=== PATIENT | female | born 1955 | race Caucasian/White ===

== ENCOUNTER → 2018-04-27 | Outpatient (CLI) | payer OTHER ==
[2018-04-27 15:37] LABS: ALBUMIN 4.4 g/dL (3.5-5.0); CALCIUM 9.5 mg/dL (8.4-10.2); POTASSIUM 3.9 mmol/L (3.6-5.0); TOTAL BILIRUBIN 0.6 mg/dL (0.2-1.3); TOTAL PROTEIN 7.4 g/dL (6.3-8.2)
[2018-04-27 15:45] LABS: BASO # 0.1 (0.02-0.10); EOS # 0.3 (0.04-0.40); EOS % 2.7 % (1.0-5.0); HEMATOCRIT 38.3 % (37.0-47.0); HEMOGLOBIN 13.4 g/dL (12.5-16.0); MEAN CELL VOLUME 86 fl (78-100); MEAN CORPUSCULAR HEMOGLOBIN 30 pg (27-31); MEAN CORPUSCULAR HGB CONC 35 g/dL (33-37); MEAN PLATELET VOLUME 10.9 fl (7.4-10.4); MONO # 0.9 (0.20-0.80); NEU # 5.2 (1.40-6.50); PLATELET COUNT 381 K/mm3 (130-400); RED BLOOD COUNT 4.45 M/mm3 (4.10-5.30); RED CELL DISTRIBUTION WIDTH 13.2 % (11.5-14.5); WHITE BLOOD COUNT 12.1 K/mm3 (4.8-10.8)
[2018-04-27 15:49] LABS: URINE APPEARANCE CLEAR; URINE COLOR YELLOW
[2018-04-27 15:50] LABS: URINE BILIRUBIN NEGATIVE (NEGATIVE); URINE BLOOD NEGATIVE (NEGATIVE); URINE GLUCOSE NEGATIVE (NEGATIVE); URINE KETONE NEGATIVE (NEGATIVE); URINE LEUKOCYTE ESTERASE NEGATIVE (NEGATIVE); URINE NITRATE NEGATIVE (NEGATIVE); URINE PROTEIN(semi-quant) NEGATIVE (NEGATIVE); URINE UROBILINOGEN NORMAL (NORMAL); URINE WBC 0-1 /hpf (0-3)
[2018-04-27 16:29] LABS: LYMPH# 5.5 (1.50-4.00)
== END ==
LOC: LAB 14:16
PROVIDERS: Family Medicine
DX: Z01.419 Encounter for gynecological examination (general) (routine) without abnormal findings (principal); R73.9 Hyperglycemia, unspecified; R35.0 Frequency of micturition; E55.9 Vitamin D deficiency, unspecified

== ENCOUNTER → 2018-04-29 | Outpatient (CLI) | payer OTHER ==
[2018-04-30 01:15] LABS: T3 TOTAL 215 ng/dL (87-178)
== END ==
LOC: LAB 10:26
PROVIDERS: Family Medicine
DX: E05.90 Thyrotoxicosis, unspecified without thyrotoxic crisis or storm (principal)

== ENCOUNTER → 2018-05-17 | Outpatient (CLI) | payer OTHER | LOC: MAMMO 12:51 | DX: Z12.31 Encounter for screening mammogram for malignant neoplasm of breast (principal) ==

== ENCOUNTER → 2020-10-01 | Outpatient (CLI) | payer MEDICARE, OTHER | LOC: RAD 09:47 → LAB 09:47 | DX: R06.00 Dyspnea, unspecified (principal); Z20.822 Contact with and (suspected) exposure to COVID-19 ==

== ENCOUNTER 2022-02-14 19:56 | Emergency (ER) | payer MEDICARE, OTHER ==
[~2022-02-14] VITALS: Wt 65.9 kg
[2022-02-14] MEDS ORDERED: SYNTHROID RP0.1 MG (20:08)
[2022-02-14] MEDS ORDERED: FLOVENT HFA12 G1 (20:08)
[2022-02-14 21:02] LABS: BASO # 0.04 K/mm3 (0.02-0.10); EOS # 0.02 K/mm3 (0.04-0.40); EOS % 0.1 % (1.0-5.0); HEMATOCRIT 39.3 % (37.0-47.0); LYMPH# 3.21 K/mm3 (1.50-4.00); MEAN CELL VOLUME 87 fl (78-100); MEAN CORPUSCULAR HEMOGLOBIN 31 pg (27-31); MEAN CORPUSCULAR HGB CONC 36 g/dL (33-37); MEAN PLATELET VOLUME 10.5 fl (7.4-10.4); MONO # 0.48 K/mm3 (0.20-0.80); NEU # 12.83 K/mm3 (1.40-6.50); PLATELET COUNT 421 K/mm3 (130-400); RED CELL DISTRIBUTION WIDTH 13.1 % (11.5-14.5); WHITE BLOOD COUNT 16.6 K/mm3 (4.8-10.8)
[2022-02-14 21:10] LABS: POTASSIUM 4.1 mmol/L (3.5-5.1)
[2022-02-14 21:11] LABS: CALCIUM 9.1 mg/dL (8.3-10.5)
[2022-02-14 22:42] VITALS: BP 159/89
== END 2022-02-14 22:43 | disposition home or self-care (01) ==
LOC: ED 19:56
PROVIDERS: Family Medicine
DX: R51.9 Headache, unspecified (principal); R11.0 Nausea; Z20.822 Contact with and (suspected) exposure to COVID-19; Z28.310 Unvaccinated for COVID-19
CPT/HCPCS: J1885; J2405; J7030

== ENCOUNTER 2024-03-11 12:58 | Emergency (ER) | payer MEDICARE, OTHER ==
[~2024-03-11] VITALS: Ht 15.2 cm; Wt 67.1 kg
[~2024-03-11 12:58] MED LIST: FLOVENT HFA12 G1; SYNTHROID RP0.1 MG
[2024-03-11 16:24] VITALS: BP 173/74
== END 2024-03-11 16:25 | disposition home or self-care (01) ==
LOC: ED 12:58
DX: S61.230A Puncture wound without foreign body of right index finger without damage to nail, initial encounter (principal); W46.0XXA Contact with hypodermic needle, initial encounter; Y93.H9 Activity, other involving exterior property and land maintenance, building and construction
CPT/HCPCS: 90715

== ENCOUNTER 2024-04-22 02:09 | Emergency (ER) | payer MEDICARE, OTHER ==
[~2024-04-22] VITALS: Ht 160 cm; Wt 65.9 kg
[2024-04-22] MEDS ORDERED: SYNTHROID0.075 MG PO (02:44)
[2024-04-22] MEDS ORDERED: Ketorolac 30 MG/ML VIAL IV ONE (03:00)
[2024-04-22 03:35] VITALS: BP 136/87
== END 2024-04-22 04:04 | disposition home or self-care (01) ==
LOC: ED 02:09
DX: G43.909 Migraine, unspecified, not intractable, without status migrainosus (principal); F17.200 Nicotine dependence, unspecified, uncomplicated
CPT/HCPCS: J0780; J1885

== ENCOUNTER → 2024-05-09 | Outpatient (CLI) | payer MEDICARE, OTHER ==
[~2024-05-09] MED LIST changes: +SYNTHROID0.075 MG PO
== END ==
LOC: RAD 09:58
DX: J32.0 Chronic maxillary sinusitis (principal); G31.9 Degenerative disease of nervous system, unspecified

== ENCOUNTER → 2024-05-30 | Outpatient (CLI) | payer MEDICARE, OTHER ==
[2024-05-30 08:38] LABS: BASO # 0.03 K/mm3 (0.02-0.10); EOS # 0.17 K/mm3 (0.04-0.40); EOS % 1.5 % (1.0-5.0); HEMATOCRIT 37.8 % (37.0-47.0); LYMPH# 3.17 K/mm3 (1.50-4.00); MEAN CELL VOLUME 88 fl (78-100); MEAN CORPUSCULAR HEMOGLOBIN 30 pg (27-31); MEAN CORPUSCULAR HGB CONC 34 g/dL (33-37); MEAN PLATELET VOLUME 9.4 fl (7.4-10.4); NEU # 7.21 K/mm3 (1.40-6.50); PLATELET COUNT 344 K/mm3 (130-400); RED CELL DISTRIBUTION WIDTH 13.4 % (11.5-14.5); WHITE BLOOD COUNT 11.3 K/mm3 (4.8-10.8)
[2024-05-30 08:51] LABS: CALCIUM 8.6 mg/dL (8.3-10.5)
[2024-05-30 08:52] LABS: TOTAL PROTEIN 6.7 g/dL (6.2-8.1)
[2024-05-30 08:54] LABS: TOTAL BILIRUBIN 0.4 mg/dL (0.2-1.2)
[2024-05-30 08:59] LABS: MAGNESIUM 1.89 mg/dL (1.60-2.60)
== END ==
LOC: LAB 08:24
PROVIDERS: Family Medicine
DX: I10 Essential (primary) hypertension (principal); E03.9 Hypothyroidism, unspecified; R50.9 Fever, unspecified